=== PATIENT | male | born 1940 | race Caucasian/White ===

== ENCOUNTER 2016-09-03 07:40 | Inpatient (IN) | payer OTHER ==
[2016-09-03] MEDS ORDERED: DUONEB 0.5-3 MG/3 ml Neb IH ONE ×2 (07:54→08:04)
[2016-09-03] MEDS ORDERED: solu-MEDROL 125 MG IV ONE (08:04)
[2016-09-03 08:11] LABS: VBG BASE EXCESS 6.2 (-2.0-2.0); VBG HCO3- 32.3 meq/L (22-28); VBG HEMOGLOBIN 14.1; VBG O2 SATURATION 46.1 (95-100); VBG POTASSIUM 3.9 (3.5-5.1); VBG pH 7.41 (7.32-7.42)
[2016-09-03] MEDS ORDERED: solu-MEDROL 125 MG ONE (08:11)
--- NOTE | 2016-09-03 08:12 | ERPHSYRPT ---
- History of Present Illness Time Seen by Provider: 09/03/16 07:51 Source: patient Exam Limitations: no limitations Patient Subjective Stated Complaint: SOB/COUGH Triage Nursing Assessment: PT ALERT X3, RESP LABORED, DEEP, BREATHS. ANTERIOR INSPIRATION CLEAR, EXPIRATORY TIGHT WHEEZES, Physician History: This is a 76-year-old white male with history of chronic bronchitis, high blood pressure, cardiac pacemaker who has been noted to have chronic bronchitis in the past and states that he was diagnosed with pneumonia by [facility] yesterday and placed on a Zithromax Z-SACHA. He states he has been short of breath for 4 days he states this is becoming worse he arrives short of breath with persistent coughing he denies any chest pain does state that his cough has been persistent no fevers. Past medical history includes chronic bronchitis, high blood pressure, cardiac pacemaker Social history patient denies tobacco alcohol or illicit drug use Timing/Duration: day(s) (cough for 4 days worse today) Activities at Onset: none Severity of Dyspnea-Max: moderate Severity of Dyspnea-Current: moderate Possible Cause: occasional episodes Modifying Factors: Improves With: nothing, other (patient started Zithromax yesterday) Associated Symptoms: constant, cough, wheezing, productive cough, No anxiety, No chest pain/discomfort, No edema, No fever, No insomnia, No loss of appetite, No lightheadedness, No weakness, No ankle swelling, No chills, No hemoptysis, No calf pain, No dizziness, No heaviness, No heart racing, No lightheadedness, No leg swelling, No muscle spasms feet, No muscle spasms hands, No painful breathing, No sweating, No tightness, No tingling hands Allergies/Adverse Reactions: No Known Drug Allergies Allergy (Unverified 09/03/16 07:59) Home Medications: Aspirin [Aspir 81] 81 mg PO DAILY 09/04/12 [History] Hydrochlorothiazide 25 mg [hydroDIURIL 25 MG] 25 mg PO DAILY 09/04/12 [ History] Lisinopril [Zestril] 5 mg PO DAILY 09/04/12 [History] Metoprolol Tartrate 25 mg [Lopressor 25MG Tab] 25 mg PO BID 09/04/12 [ History] - Review of Systems Constitutional: No Fever, No Chills Eyes: No Symptoms Ears, Nose, & Throat: No Symptoms Respiratory: Cough, Dyspnea, Wheezing, No Cyanosis, No Dyspnea on Exertion (MCCARTY) , No Stridor, No Other Cardiac: No Chest Pain, No Edema, No Syncope Abdominal/Gastrointestinal: No Abdominal Pain, No Nausea, No Vomiting, No Diarrhea Genitourinary Symptoms: No Dysuria Musculoskeletal: No Back Pain, No Neck Pain Skin: No Rash Neurological: No Dizziness, No Focal Weakness, No Sensory Changes Psychological: No Symptoms Endocrine: No Symptoms All Other Systems: Reviewed and Negative - Past Medical History Pertinent Past Medical History: Yes Neurological History: No Pertinent History ENT History: No Pertinent History Cardiac History: Hypertension, Other Respiratory History: No Pertinent History Endocrine Medical History: No Pertinent History Musculoskeletal History: No Pertinent History History: No Pertinent History Psycho-Social History: No Pertinent History Male Reproductive Disorders: No Pertinent History Other Medical History: PPM - Past Surgical History Past Surgical History: Yes Neuro Surgical History: No Pertinent History Cardiac: Pacemaker Respiratory: No Pertinent History Gastrointestinal: No Pertinent History Genitourinary: No Pertinent History Musculoskeletal: No Pertinent History Male Surgical History: No Pertinent History - Social History Smoking Status: Never smoker Exposure to second hand smoke: No Drug Use: none Patient Lives Alone: No - Nursing Vital Signs Nursing Vital Signs: Initial Vital Signs Temperature 98.5 F Temperature Source Oral Pulse Rate 103 Respiratory Rate 20 Blood Pressure [] 134/69 Pain Intensity 0 - Physical Exam General Appearance: moderate distress, other (well-developed well-nourished white male persistent cough) Eye Exam: PERRL/EOMI Ears, Nose, Throat Exam: hearing grossly normal, normal ENT inspection, normal pharynx, No abnormal TM (R), No abnormal TM (L), No sinus pain/drainage, No hearing decreased, No nasal congestion, No tonsillar exudate Neck Exam: normal inspection, non-tender, supple Respiratory Exam: respiratory distress (frequent cough short of breath), airway intact, diminished breath sounds, wheezing, No chest tenderness, No lungs clear , No accessory muscle use, No prolonged expirations, No crackles/rales, No rhonchi, No stridor, No pleural rub Cardiovascular/Chest Exam: normal heart sounds, regular rate/rhythm Abdominal/Gastrointestinal Exam: soft, No tenderness, No distention, No mass Extremity Exam: non-tender, normal range of motion, normal inspection, no calf tenderness, no pedal edema Peripheral Pulses Exam: dorsalis-pedis (R): 2+, dorsalis-pedis (L): 2+ Neurologic Exam: alert Skin Exam: normal color (illnesses), warm, No dry SpO2 Interpretation: borderline oxygenation (87% on room air on arrival ) SpO2: 94 Oxygen Delivery: Nasal Cannula - Course Nursing assessment & vital signs reviewed: Yes EKG Interpreted by Me: RATE (105 bpm), Other (EKG; Paced rhythm 105 bpm) - Radiology Exams Chest X-ray Interpretation: Discussed w/ radiologist, Other (chest x-ray: Lingular infiltrate/atelectasis) Ordered Tests: Active Orders 24 hr Category Date Time Status Bedrest with BRP/BSC ROUTINE Activity 09/03/16 09:51 Active Accucheck ACHS Care 09/03/16 09:51 Active Admission/Status Order ROUTINE Care 09/03/16 09:52 Active CO2 Monitoring CONTINUOUS Care 09/03/16 09:53 Active Mercury Purifier STAT Care 09/03/16 08:04 Active Code Status Order ROUTINE Care 09/03/16 09:52 Active EKG-ER Only STAT Care 09/03/16 08:04 Active IV Care Q6H Care 09/03/16 09:52 Active IV Insertion STAT Care 09/03/16 08:04 Active Oxygen-ED Only NASAL CANNULA 4 lpm Care 09/03/16 08:04 Active Julito Hose, Apply ROUTINE Care 09/03/16 09:52 Active Weight,Daily 0600 Care 09/03/16 09:52 Active Cardiac Diet Diet 09/03/16 Lunch Active CHEST 1 VIEW (PORTABLE) Stat Exams 09/03/16 08:05 Completed BLOOD CULTURE Stat Lab 09/03/16 08:15 Received CBC AM.LAB Lab 09/04/16 04:00 Ordered CBC W DIFF Stat Lab 09/03/16 08:00 Completed CMP AM.LAB Lab 09/04/16 04:00 Ordered CMP Stat Lab 09/03/16 08:00 Completed CULTURE,SPUTUM Stat Lab 09/03/16 08:00 Received Manual Differential NC Stat Lab 09/03/16 08:00 Completed NT PRO BNP Stat Lab 09/03/16 08:15 Completed TROPONIN Stat Lab 09/03/16 08:15 Completed VENOUS BLOOD GAS Urgent Lab 09/03/16 08:05 Completed Oxygen NASAL CANNULA 5 lpm RT 09/03/16 09:51 Active Pulse Oximetry CONTINUOUS RT 09/03/16 09:54 Active Respiratory Nebulizer STAT RT 09/03/16 08:06 Completed Respiratory Nebulizer STAT RT 09/03/16 08:27 Completed Respiratory Nebulizer STAT RT 09/03/16 09:08 Completed Medication Summary Generic Name Dose Route Start Last Admin Trade Name Juan Luis PRN Reason Stop Dose Admin Albuterol Sulfate 2.5 mg 09/03/16 11:00 Proventil 2.5 Mg/3 Ml Neb IH 10/03/16 10:59 Q4HRT LUCIAN Ceftriaxone Sodium/Dextrose 50 mls @ 100 mls/hr 09/03/16 10:00 Rocephin 1 Gm-D5w 50 Ml Bag IV 10/03/16 09:59 Q24H10 LUCIAN Azithromycin 250 mls @ 125 mls/hr 09/03/16 10:00 Zithromax 500 Mg/ 250 Ml Nacl Premix IV 10/03/16 09:59 Q24H10 LUCIAN Sodium Chloride 1,000 mls @ 50 mls/hr 09/03/16 10:00 Sodium Chloride 0.9% 1000 Ml IV 10/03/16 09:59 .Q20H LUCIAN Methylprednisolone Sodium Succinate 80 mg 09/03/16 12:00 Solu-Medrol 125 Mg IV 10/03/16 11:59 Q6HT LUCIAN Discontinued Medications Generic Name Dose Route Start Last Admin Trade Name Juan Luis PRN Reason Stop Dose Admin Albuterol Sulfate 2.5 mg 09/03/16 08:27 09/03/16 08:30 Proventil 2.5 Mg/3 Ml Neb IH 09/03/16 08:28 2.5 mg STAT ONE Administration Albuterol Sulfate Confirm 09/03/16 08:28 Proventil 2.5 Mg/3 Ml Neb Administered 09/03/16 08:29 Dose 2.5 mg IH .STK-MED ONE Albuterol Sulfate 2.5 mg 09/03/16 09:07 09/03/16 09:20 Proventil 2.5 Mg/3 Ml Neb IH 09/03/16 09:08 2.5 mg STAT ONE Administration Albuterol Sulfate Confirm 09/03/16 09:20 Proventil 2.5 Mg/3 Ml Neb Administered 09/03/16 09:21 Dose 2.5 mg IH .STK-MED ONE Albuterol/Ipratropium Confirm 09/03/16 07:54 Duoneb 0.5-3 Mg/3 Ml Neb Administered 09/03/16 07:55 Dose 3 ml IH .STK-MED ONE Albuterol/Ipratropium 3 ml 09/03/16 08:04 09/03/16 08:00 Duoneb 0.5-3 Mg/3 Ml Neb IH 09/03/16 08:05 3 ml STAT ONE Administration Ceftriaxone Sodium/Dextrose 50 mls @ 100 mls/hr 09/03/16 08:52 09/03/16 08:55 Rocephin 1 Gm-D5w 50 Ml Bag IV 09/03/16 09:21 100 mls/hr STAT ONE Administration Ceftriaxone Sodium/Dextrose Confirm 09/03/16 08:54 Rocephin 1 Gm-D5w 50 Ml Bag Administered 09/03/16 08:55 Dose 50 mls @ ud IV .STK-MED ONE Methylprednisolone Sodium Succinate 125 mg 09/03/16 08:04 09/03/16 08:13 Solu-Medrol 125 Mg IV 09/03/16 08:05 125 mg STAT ONE Administration Methylprednisolone Sodium Succinate Confirm 09/03/16 08:11 Solu-Medrol 125 Mg Administered 09/03/16 08:12 Dose 125 mg .ROUTE .STK-MED ONE Lab/Rad Data: Laboratory Result Diagrams 09/03/16 08:00 09/03/16 08:00 Laboratory Results 09/03/16 09/03/16 09/03/16 Range/Units 08:15 08:15 08:15 WBC (4.0-10.5) K/mm3 RBC (4.1-5.6) M/mm3 Hgb (12.5-18.0) gm/dl Hct (42-50) % MCV (78-100) fl MCH (26-32) pg MCHC (32-36) g/dl RDW (11.5-14.0) % Plt Count (150-450) K/mm3 MPV (6-9.5) fl Segmented Neutrophils (36.-66.) % Band Neutrophils (0.0-2.0) % Lymphocytes (Manual) (24-44) % Monocytes (Manual) (0.0-12.0) % Eosinophils (Manual) (0.00-3.0) % Differential Comment Platelet Estimate (NORMAL) VBG pH (7.32-7.42) VBG pCO2 at Pat Temp (42-55) mm/Hg VBG pO2 at Pat Temp (25-40) mm/Hg VBG HCO3 (22-28) meq/L VBG O2 Sat (Mike) (95-100) VBG Base Excess (-2.0-2.0) VBG Hemoglobin VBG Carboxyhemoglobin (0.0-6.9) % T HGB POC Potassium (3.5-5.1) Sodium (136-145) mEq/L Potassium (3.5-5.1) mEq/L Chloride (98-107) mEq/L Carbon Dioxide (21-32) mEq/L Anion Gap (5-15) MEQ/L BUN (9-20) mg/dL Creatinine (0.55-1.30) mg/dl Estimated GFR ML/MIN Glucose (70-110) MG/DL Calcium (8.5-10.1) mg/dL Total Bilirubin (0.2-1.0) mg/dL AST (15-37) U/L ALT (12-78) U/L Alkaline Phosphatase (46-116) U/L Troponin I < 0.017 (0.000-0.056) ng/ml NT-Pro-B Natriuret Pep 100 (0-125) pg/ml Serum Total Protein (6.4-8.2) gm/dL Albumin (3.4-5.0) g/dL Resp Infection Panel NEGATIVE (Negative) 09/03/16 09/03/16 09/03/16 Range/Units 08:05 08:00 08:00 WBC 15.3 H (4.0-10.5) K/mm3 RBC 3.75 L (4.1-5.6) M/mm3 Hgb 13.1 (12.5-18.0) gm/dl Hct 36.5 L (42-50) % MCV 97.3 (78-100) fl MCH 34.9 H (26-32) pg MCHC 35.9 (32-36) g/dl RDW 14.4 H (11.5-14.0) % Plt Count 276 (150-450) K/mm3 MPV 10.2 H (6-9.5) fl Segmented Neutrophils 79 H (36.-66.) % Band Neutrophils 1 (0.0-2.0) % Lymphocytes (Manual) 16 L (24-44) % Monocytes (Manual) 3 (0.0-12.0) % Eosinophils (Manual) 1 (0.00-3.0) % Differential Comment NORMAL Platelet Estimate NORMAL (NORMAL) VBG pH 7.41 (7.32-7.42) VBG pCO2 at Pat Temp 51 (42-55) mm/Hg VBG pO2 at Pat Temp 26 (25-40) mm/Hg VBG HCO3 32.3 H* (22-28) meq/L VBG O2 Sat (Mike) 46.1 L (95-100) VBG Base Excess 6.2 H (-2.0-2.0) VBG Hemoglobin 14.1 VBG Carboxyhemoglobin 3.0 (0.0-6.9) % T HGB POC Potassium 3.9 (3.5-5.1) Sodium 140 (136-145) mEq/L Potassium 3.6 (3.5-5.1) mEq/L Chloride 98 (98-107) mEq/L Carbon Dioxide 30.2 (21-32) mEq/L Anion Gap 15.0 (5-15) MEQ/L BUN 23 H (9-20) mg/dL Creatinine 1.28 (0.55-1.30) mg/dl Estimated GFR 58 ML/MIN Glucose 165 H (70-110) MG/DL Calcium 8.6 (8.5-10.1) mg/dL Total Bilirubin 0.6 (0.2-1.0) mg/dL AST 24 (15-37) U/L ALT 30 (12-78) U/L Alkaline Phosphatase 58 (46-116) U/L Troponin I (0.000-0.056) ng/ml NT-Pro-B Natriuret Pep (0-125) pg/ml Serum Total Protein 7.4 (6.4-8.2) gm/dL Albumin 3.0 L (3.4-5.0) g/dL Resp Infection Panel (Negative) - Progress Progress: improved Air Movement: fair Progress Note: 09/03/16 09:10 Is a 76-year-old white male with history of chronic bronchitis who was diagnosed with pneumonia at the [facility] yesterday. He arrives with complaints of shortness of breath and cough. Patient does have a history of a cardiac pacemaker patient has a lingular pneumonia on chest x-ray. Patient's satting in the high 80s on 5 L of the nasal cannula he has bilateral wheezes in his lungs patient has a white count of 15 3 hemoglobin 13 hematocrit 36 patient's chemistry essentially normal with the exception of a glucose of 165 and a BUN of 23 patient's BNP is 100 troponin is less than 0.017 chest x- ray as noted above lingular infiltrate versus atelectasis. Patient has received DuoNeb treatment albuterol treatments Solu-Medrol , cultures have been obtained patient is receiving Rocephin. Patient is a [facility] patient [facility] has contacted there are no beds Will contact hospitalist for admission diagnosis pneumonia, bronchospasm. Will plan on continued IV antibiotics IV steroids oxygen administration and inhalation treatments. 09/03/16 09:56 Case is discussed with Dr. Cohn patient will be admitted. Will be continued with IV antibiotics steroids and breathing treatments oxygen. - Departure Time of Disposition: 09:56 Departure Disposition: In-patient Admission Clinical Impression: Bronchospasm, Shortness of breath, Hypoxia Pneumonia Qualifiers: Pneumonia type: due to unspecified organism Laterality: left Lung location: upper lobe of lung Qualified Code(s): J18.1 - Lobar pneumonia, unspecified organism Condition: Fair Critical Care Time: No
[2016-09-03] MEDS ORDERED: PROVENTIL 2.5 MG/3 ML NEB IH ONE ×4 (08:27→09:20)
[2016-09-03 08:29] LABS: Mean Cell Volume 97.3 fl (78-100); Mean Corpuscular Hemoglobin 34.9 pg (26-32); Mean Platelet Volume 10.2 fl (6-9.5); Platelet Count 276 K/mm3 (150-450); Red Blood Count 3.75 M/mm3 (4.1-5.6); Red Cell Distribution Width 14.4 % (11.5-14.0); White Blood Count 15.3 K/mm3 (4.0-10.5)
--- NOTE | 2016-09-03 08:42 | XRAY ---
Indication: Cough. Pneumonia. Comparison: September 04, 2012 Portable chest again hyperinflated with now lingular infiltrate versus atelectasis. No consolidation or large effusion. Heart is not enlarged. Vascularity normal. Stable left-sided dual-lead pacemaker. Bony thorax intact again with osteopenia and degenerative changes. Impression: Lingular infiltrate/atelectasis. Correlate clinically.
[2016-09-03 08:48] LABS: BILIRUBIN,TOTAL 0.6 mg/dL (0.2-1.0); Carbon Dioxide 30.2 mEq/L (21-32); Potassium 3.6 mEq/L (3.5-5.1); Total Protein 7.4 gm/dL (6.4-8.2)
[2016-09-03] MEDS ORDERED: ROCEPHIN 1 Gm-D5w 50 ml Bag** 50 ML IV ONE ×2 (08:52→08:54)
[2016-09-03 09:05] LABS: BAND 1 % (0.0-2.0); Eosinophil 1 % (0.00-3.0); Platelet Estimate NORMAL (NORMAL); Total Cells Counted 100
[2016-09-03] MEDS: ROCEPHIN 1 Gm-D5w 50 ml Bag** 50 ML IV SCH (10:25)
[2016-09-03] MEDS: PROVENTIL 2.5 MG/3 ML NEB IH SCH ×4 (11:17→23:39)
[2016-09-03] MEDS: Sodium Chloride 0.9% 1000 ML 1,000 ML IV SCH (11:19)
[2016-09-03] MEDS: Zithromax 500 MG/ 250 ML NaCl Premix 250 ML IV SCH (11:21)
[2016-09-03] MEDS ORDERED: solu-MEDROL 125 MG IV SCH (12:00)
[2016-09-03] MEDS: NovoLOG Insulin SQ PRN ×2 (16:43→22:16)
--- NOTE | 2016-09-03 17:22 | PCM.HP ---
History of Present Illness - Chief Complaint Chief Complaint: pneumonia History of Present Illness: is a 76 year old male patient who follows with the [facility] in [place]. He was reportedly diagnosed with pneumonia yesterday after a chest xray and started on a zpak, was told to come to ER if he got worse. He has had a productive cough worsening for the last 3 weeks, yellow sputum production. Feverish and having chills, he has no prior known history of respiratory problems, he is a nonsmoker. - Review of Systems Constitutional: Fever, Chills Respiratory: Cough, Short Of Breath Cardiac: No Chest Pain, No Edema, No Syncope Abdominal/Gastrointestinal: No Abdominal Pain, No Nausea, No Vomiting, No Diarrhea Skin: No Rash Neurological: No Dizziness, No Focal Weakness, No Sensory Changes All Other Systems: Reviewed and Negative Medications & Allergies Home Medications: Home Medication List Aspirin [Aspir 81] 81 mg PO DAILY 09/04/12 [History Confirmed 09/03/16] Hydrochlorothiazide 25 mg [hydroDIURIL 25 MG] 25 mg PO DAILY 09/04/12 [ History Confirmed 09/03/16] Lisinopril [Zestril] 5 mg PO DAILY 09/04/12 [History Confirmed 09/03/16] Metoprolol Tartrate 25 mg [Lopressor 25MG Tab] 25 mg PO DAILY 09/04/12 [ History Confirmed 09/03/16] Allergies/Adverse Reactions: Allergies Allergy/AdvReac Type Severity Reaction Status Date / Time No Known Drug Allergies Allergy Unverified 09/03/16 07:59 - Past Medical History Past Medical History: Yes Neurological History: No Pertinent History ENT History: No Pertinent History Cardiac History: Hypertension, Other Respiratory History: No Pertinent History Endocrine Medical History: No Pertinent History Musculoskelatal History: No Pertinent History GI Medical History: No Pertinent History History: No Pertinent History Pyscho-Social History: No Pertinent History Male Reproductive Disorders: No Pertinent History Comment: skin cancer - Past Surgical History Past Surgical History: Yes Neuro Surgical History: No Pertinent History Cardiac History: Pacemaker Respiratory Surgery: No Pertinent History GI Surgical History: No Pertinent History Genitourinary Surgical Hx: No Pertinent History Musculskeletal Surgical Hx: No Pertinent History Male Surgical History: No Pertinent History - Social History Smoking Status: Never smoker Exposure to second hand smoke: No Alcohol: None Drug Use: none - Physical Exam Vital Signs: Vital Signs - 24 hr Temp Pulse Resp BP Pulse Ox 09/03/16 16:13 98.2 F 99 H 20 152/80 95 09/03/16 14:35 104 H 20 93 L 09/03/16 11:28 99.1 F 100 H 24 155/71 09/03/16 11:19 110 H 20 92 L 09/03/16 10:43 99.1 F 100 H 24 155/71 90 L 09/03/16 09:58 94 L 09/03/16 09:54 92 L 09/03/16 09:40 105 H 24 136/62 84 L 09/03/16 09:22 103 H 20 92 L 09/03/16 08:50 108 H 17 134/69 90 L 09/03/16 08:41 101 H 20 91 L 09/03/16 08:22 103 H 21 142/79 91 L 09/03/16 08:12 107 H 22 93 L 09/03/16 07:49 23 94 L 09/03/16 07:40 98.5 F 114 H 26 H 147/59 84 L Oxygen-Last 24 hours O2 Percentage 5 Liters = 40% O2 Percentage 5 Liters = 40% O2 Percentage 5 Liters = 40% O2 Percentage 5 Liters = 40% O2 Percentage 5 Liters = 40% O2 Percentage 5 Liters = 40% O2 Percentage 4 Liters = 36% O2 Percentage 4 Liters = 36% General Appearance: no apparent distress, alert Respiratory Exam: crackles/rales (on left) Cardiovascular Exam: regular rate/rhythm, normal heart sounds, normal peripheral pulses Gastrointestinal/Abdomen Exam: soft, normal bowel sounds, No tenderness, No mass Extremity Exam: normal inspection, normal range of motion, pelvis stable Skin Exam: normal color, warm, dry, No rash Results - Labs Lab/Micro Results: Accuchecks Accucheck Value: 212 Accuchecks Accucheck Value: 212 - Other Procedures and Tests Respiratory Therapy 09/03/16 11:00 Respiratory Nebulizer Q4H Assessment/Plan (1) Pneumonia Current Visit: Yes Status: Acute Qualifiers: Pneumonia type: due to unspecified organism Laterality: left Lung location: upper lobe of lung Qualified Code(s): J18.1 - Lobar pneumonia, unspecified organism Assessment & Plan: patient on rocephin and zithromax, will continue nebs. I do not hear any wheezing on exam and no hx of copd/bronchospasm. will stop solu medrol ordered from ER Code(s): J18.9 - PNEUMONIA, UNSPECIFIED ORGANISM (2) Hyperglycemia Current Visit: Yes Status: Acute Assessment & Plan: exacerbated by steroids, will check a1c to further evaluate Code(s): R73.9 - HYPERGLYCEMIA, UNSPECIFIED
[2016-09-04] MEDS: PROVENTIL 2.5 MG/3 ML NEB IH SCH ×6 (03:10→22:56)
[2016-09-04 05:58] LABS: Mean Cell Volume 97.9 fl (78-100); Mean Corpuscular Hemoglobin 34.3 pg (26-32); Mean Platelet Volume 9.1 fl (6-9.5); Platelet Count 280 K/mm3 (150-450); Red Blood Count 3.38 M/mm3 (4.1-5.6); Red Cell Distribution Width 14.4 % (11.5-14.0)
[2016-09-04 06:21] LABS: ALBUMIN 2.4 g/dL (3.4-5.0); ANION GAP 13.6 MEQ/L (5-15); BILIRUBIN,TOTAL 0.2 mg/dL (0.2-1.0); Carbon Dioxide 29.6 mEq/L (21-32); Potassium 4.2 mEq/L (3.5-5.1); Total Protein 7.5 gm/dL (6.4-8.2)
[2016-09-04 07:11] LABS: Total Cells Counted 100
[2016-09-04 07:12] LABS: ANISOCYTOSIS 1+; Platelet Estimate NORMAL (NORMAL); Poikilocytosis 1+
--- NOTE | 2016-09-04 08:12 | PCM.NOTE ---
Date and Time: 09/04/16809 Subjective Assessment: patient reports some improvement of respiratory symptoms, still has significant cough, hard to breathe deeply Objective Exam General Appearance: no apparent distress, alert Respiratory Exam: crackles/rales Cardiovascular Exam: regular rate/rhythm, normal heart sounds Gastrointestinal/Abdomen Exam: soft, No tenderness, No mass Extremity Exam: normal inspection, normal range of motion OBJECTIVE DATA Vital Signs: Vital Signs - 24 hr Temp Pulse Resp BP Pulse Ox 09/04/16 07:31 97.8 F 93 H 22 124/57 94 L 09/04/16 06:37 82 20 94 L 09/04/16 04:00 97.0 F 83 20 132/62 91 L 09/04/16 03:10 74 22 91 L 09/04/16 00:00 98.2 F 95 H 21 132/60 90 L 09/03/16 23:39 94 H 16 90 L 09/03/16 20:00 98.1 F 104 H 22 113/55 91 L 09/03/16 19:43 101 H 16 90 L 09/03/16 16:13 98.2 F 99 H 20 152/80 95 09/03/16 14:35 104 H 20 93 L 09/03/16 11:28 99.1 F 100 H 24 155/71 09/03/16 11:19 110 H 20 92 L 09/03/16 10:43 99.1 F 100 H 24 155/71 90 L 09/03/16 09:58 94 L 09/03/16 09:54 92 L 09/03/16 09:40 105 H 24 136/62 84 L 09/03/16 09:22 103 H 20 92 L 09/03/16 08:50 108 H 17 134/69 90 L 09/03/16 08:41 101 H 20 91 L 09/03/16 08:22 103 H 21 142/79 91 L 09/03/16 08:12 107 H 22 93 L Oxygen-Last 24 hours O2 Percentage 6 Liters = 44% O2 Percentage 6 Liters = 44% O2 Percentage 5 Liters = 40% O2 Percentage 5 Liters = 40% O2 Percentage 5 Liters = 40% O2 Percentage 5 Liters = 40% O2 Percentage 5 Liters = 40% O2 Percentage 5 Liters = 40% O2 Percentage 5 Liters = 40% O2 Percentage 5 Liters = 40% Pain Assessment - Last Documented Pain Scale Used 0-10 Pain Scale Intake and Output: Intake & Output 09/01/16 09/02/16 09/03/16 09/04/16 11:59 11:59 11:59 11:59 Intake Total 1820 Balance 1820 Weight 94.914 kg 96.207 kg Lab Results: Accuchecks Accucheck Value: 361 Accucheck Value: 392 Accucheck Value: 212 Lab Results-Last 24 Hours 09/04/16 09/04/16 Range/Units 05:08 05:08 WBC 16.0 H (4.0-10.5) K/mm3 RBC 3.38 L (4.1-5.6) M/mm3 Hgb 11.6 L (12.5-18.0) gm/dl Hct 33.1 L (42-50) % MCV 97.9 (78-100) fl MCH 34.3 H (26-32) pg MCHC 35.0 (32-36) g/dl RDW 14.4 H (11.5-14.0) % Plt Count 280 (150-450) K/mm3 MPV 9.1 (6-9.5) fl Segmented Neutrophils 91 H (36.-66.) % Lymphocytes (Manual) 4 L (24-44) % Monocytes (Manual) 5 (0.0-12.0) % Differential Comment ABNORMAL Platelet Estimate NORMAL (NORMAL) Poikilocytosis 1+ Anisocytosis 1+ Sodium 140 (136-145) mEq/L Potassium 4.2 (3.5-5.1) mEq/L Chloride 101 (98-107) mEq/L Carbon Dioxide 29.6 (21-32) mEq/L Anion Gap 13.6 (5-15) MEQ/L BUN 29 H (9-20) mg/dL Creatinine 1.30 (0.55-1.30) mg/dl Estimated GFR 57 ML/MIN Glucose 331 H (70-110) MG/DL Calcium 8.7 (8.5-10.1) mg/dL Total Bilirubin 0.2 (0.2-1.0) mg/dL AST 24 (15-37) U/L ALT 30 (12-78) U/L Alkaline Phosphatase 53 (46-116) U/L Serum Total Protein 7.5 (6.4-8.2) gm/dL Albumin 2.4 L (3.4-5.0) g/dL Assessment/Plan (1) Pneumonia Current Visit: Yes Status: Acute Qualifiers: Pneumonia type: due to unspecified organism Laterality: left Lung location: upper lobe of lung Qualified Code(s): J18.1 - Lobar pneumonia, unspecified organism Assessment & Plan: continue current management Code(s): J18.9 - PNEUMONIA, UNSPECIFIED ORGANISM (2) Hyperglycemia Current Visit: Yes Status: Acute Assessment & Plan: a1c 6.8% so technically meets criteria for diabetes, continue to cover with sliding scale insulin at this time Code(s): R73.9 - HYPERGLYCEMIA, UNSPECIFIED
[2016-09-04] MEDS: Sodium Chloride 0.9% 1000 ML 1,000 ML IV SCH (08:14)
[2016-09-04] MEDS: hydroDIURIL 25 MG PO SCH (08:16)
[2016-09-04] MEDS: Lopressor 25MG Tab PO SCH (08:16)
[2016-09-04] MEDS: Zestril 5 MG PO SCH (08:16)
[2016-09-04] MEDS: ECOTRIN 81 MG PO SCH (08:16)
[2016-09-04] MEDS: ROCEPHIN 1 Gm-D5w 50 ml Bag** 50 ML IV SCH (08:17)
[2016-09-04] MEDS: NovoLOG Insulin SQ PRN ×4 (08:21→22:02)
[2016-09-04] MEDS: Zithromax 500 MG/ 250 ML NaCl Premix 250 ML IV SCH (10:33)
[2016-09-04] MEDS: DELTASONE 20 MG PO SCH ×2 (10:33→22:02)
[2016-09-04] MEDS: Tussionex Pennkinetic Susp PO PRN (22:02)
[2016-09-05] MEDS: PROVENTIL 2.5 MG/3 ML NEB IH SCH ×6 (02:34→22:51)
[2016-09-05] MEDS: Sodium Chloride 0.9% 1000 ML 1,000 ML IV SCH (05:05)
[2016-09-05 05:34] LABS: Mean Cell Volume 96.9 fl (78-100); Platelet Count 337 K/mm3 (150-450); Red Blood Count 3.81 M/mm3 (4.1-5.6); Red Cell Distribution Width 14.9 % (11.5-14.0); White Blood Count 17.9 K/mm3 (4.0-10.5)
[2016-09-05 06:07] LABS: ANION GAP 12.7 MEQ/L (5-15); Carbon Dioxide 29.9 mEq/L (21-32)
[2016-09-05 06:08] LABS: Mean Corpuscular Hemoglobin 30.1 pg (26-32)
[2016-09-05 07:16] LABS: BAND 3 % (0.0-2.0); Myelocyte 1 %; Platelet Estimate NORMAL (NORMAL); Total Cells Counted 100
--- NOTE | 2016-09-05 08:09 | PCM.NOTE ---
Date and Time: 09/05/16807 Subjective Assessment: patient is improving, had a bad coughing spell last night but overall is less dyspneic and has more energy. Objective Exam General Appearance: no apparent distress, alert Respiratory Exam: rhonchi Cardiovascular Exam: regular rate/rhythm, normal heart sounds Gastrointestinal/Abdomen Exam: soft, No tenderness, No mass Extremity Exam: normal inspection, normal range of motion OBJECTIVE DATA Vital Signs: Vital Signs - 24 hr Temp Pulse Resp BP Pulse Ox 09/05/16 08:00 97.8 F 83 20 118/58 93 L 09/05/16 06:00 73 18 93 L 09/05/16 04:00 98.5 F 66 19 138/65 91 L 09/05/16 02:34 79 14 94 L 09/05/16 00:00 98.4 F 95 H 21 117/57 89 L 09/04/16 22:56 103 H 16 91 L 09/04/16 20:00 98.3 F 83 16 111/52 88 L 09/04/16 19:00 91 H 16 92 L 09/04/16 16:31 97.8 F 78 20 111/56 96 09/04/16 16:00 20 09/04/16 14:53 84 20 95 09/04/16 12:00 20 09/04/16 11:46 98.2 F 85 20 106/55 93 L 09/04/16 10:41 84 20 94 L Oxygen-Last 24 hours O2 Percentage 2 Liters = 28% O2 Percentage 2 Liters = 28% O2 Percentage 2 Liters = 28% O2 Percentage 2 Liters = 28% O2 Percentage 6 Liters = 44% Pain Assessment - Last Documented Pain Scale Used 0-10 Pain Scale Intake and Output: Intake & Output 09/02/16 09/03/16 09/04/16 09/05/16 11:59 11:59 11:59 11:59 Intake Total 1820 2331 Balance 1820 2331 Weight 94.914 kg 96.207 kg Lab Results: Accuchecks Date 09/05/16 Date 09/05/16 Date 09/04/16 Date 09/04/16 Time 08:03 Time 22:00 Time 16:30 Time 11:30 Accucheck Value: 224 Accucheck Value: 294 Accucheck Value: 393 Accucheck Value: 255 Lab Results-Last 24 Hours 09/05/16 09/05/16 Range/Units 05:13 05:13 WBC 17.9 H (4.0-10.5) K/mm3 RBC 3.81 L (4.1-5.6) M/mm3 Hgb 11.5 L (12.5-18.0) gm/dl Hct 36.9 L (42-50) % MCV 96.9 (78-100) fl MCH 30.1 (26-32) pg MCHC 31.2 L (32-36) g/dl RDW 14.9 H (11.5-14.0) % Plt Count 337 (150-450) K/mm3 MPV 9.0 (6-9.5) fl Segmented Neutrophils 86 H (36.-66.) % Band Neutrophils 3 H (0.0-2.0) % Lymphocytes (Manual) 7 L (24-44) % Monocytes (Manual) 3 (0.0-12.0) % Myelocytes 1 % Differential Comment NORMAL Platelet Estimate NORMAL (NORMAL) Sodium 141 (136-145) mEq/L Potassium 5.0 (3.5-5.1) mEq/L Chloride 103 (98-107) mEq/L Carbon Dioxide 29.9 (21-32) mEq/L Anion Gap 12.7 (5-15) MEQ/L BUN 36 H (9-20) mg/dL Creatinine 1.34 H (0.55-1.30) mg/dl Estimated GFR 55 ML/MIN Glucose 270 H (70-110) MG/DL Calcium 8.7 (8.5-10.1) mg/dL Assessment/Plan (1) Pneumonia Current Visit: Yes Status: Acute Qualifiers: Pneumonia type: due to unspecified organism Laterality: left Lung location: upper lobe of lung Qualified Code(s): J18.1 - Lobar pneumonia, unspecified organism Assessment & Plan: on rocephin and zithromax, improving clinically Code(s): J18.9 - PNEUMONIA, UNSPECIFIED ORGANISM (2) Hyperglycemia Current Visit: Yes Status: Acute Assessment & Plan: will likely need to go home on metformin and will need diabetic education etc Code(s): R73.9 - HYPERGLYCEMIA, UNSPECIFIED
[2016-09-05] MEDS: NovoLOG Insulin SQ PRN ×4 (08:15→21:15)
[2016-09-05] MEDS: ECOTRIN 81 MG PO SCH (09:18)
[2016-09-05] MEDS: ROCEPHIN 1 Gm-D5w 50 ml Bag** 50 ML IV SCH (09:18)
[2016-09-05] MEDS: hydroDIURIL 25 MG PO SCH (09:19)
[2016-09-05] MEDS: Zestril 5 MG PO SCH (09:19)
[2016-09-05] MEDS: Lopressor 25MG Tab PO SCH (09:19)
[2016-09-05] MEDS: DELTASONE 20 MG PO SCH ×2 (09:19→21:09)
[2016-09-05] MEDS: Zithromax 500 MG/ 250 ML NaCl Premix 250 ML IV SCH (10:32)
[2016-09-06] MEDS: Sodium Chloride 0.9% 1000 ML 1,000 ML IV SCH (02:45)
[2016-09-06] MEDS: PROVENTIL 2.5 MG/3 ML NEB IH SCH ×6 (02:51→22:58)
[2016-09-06 06:01] LABS: Mean Cell Volume 94.9 fl (78-100); Platelet Count 341 K/mm3 (150-450); Red Blood Count 3.95 M/mm3 (4.1-5.6); Red Cell Distribution Width 14.8 % (11.5-14.0); White Blood Count 15.8 K/mm3 (4.0-10.5)
[2016-09-06 06:15] LABS: ALBUMIN 2.5 g/dL (3.4-5.0); ALKALINE PHOSPHATASE 48 U/L (46-116); ANION GAP 15.5 MEQ/L (5-15); BILIRUBIN,TOTAL 0.2 mg/dL (0.2-1.0); BLOOD UREA NITROGEN 23 mg/dL (9-20); CHLORIDE 103 mEq/L (98-107); Carbon Dioxide 27.3 mEq/L (21-32); Glucose 256 MG/DL (70-110); Potassium 5.5 mEq/L (3.5-5.1); SGOT/AST 23 U/L (15-37); SGPT/ALT 44 U/L (12-78); SODIUM 140 mEq/L (136-145); Total Protein 7.2 gm/dL (6.4-8.2)
[2016-09-06 06:27] LABS: Mean Corpuscular Hemoglobin 30.8 pg (26-32)
[2016-09-06] MEDS: NovoLOG Insulin SQ PRN ×3 (07:56→21:32)
[2016-09-06 08:11] LABS: Platelet Estimate NORMAL (NORMAL); Total Cells Counted 100
[2016-09-06 08:12] LABS: Toxic Granulation 1+
[2016-09-06] MEDS: ECOTRIN 81 MG PO SCH (08:42)
[2016-09-06] MEDS: Lopressor 25MG Tab PO SCH (08:42)
[2016-09-06] MEDS: hydroDIURIL 25 MG PO SCH (08:42)
[2016-09-06] MEDS: ROCEPHIN 1 Gm-D5w 50 ml Bag** 50 ML IV SCH (08:43)
[2016-09-06] MEDS: DELTASONE 20 MG PO SCH (08:43)
[2016-09-06] MEDS: Zestril 5 MG PO SCH (08:43)
[2016-09-06] MEDS: Zithromax 500 MG/ 250 ML NaCl Premix 250 ML IV SCH (10:28)
--- NOTE | 2016-09-06 11:27 | PCM.NOTE ---
Date and Time: 09/06/16 1122 Subjective Assessment: Pt was feeling better his first two days, now he sometimes feels better and worse through the day. Coughed all night. Has not been up moving around. Objective Exam General Appearance: no apparent distress Neurologic Exam: alert, oriented x 3, cooperative Skin Exam: normal color, warm, dry Respiratory Exam: diminished breath sounds, rhonchi (RLL), No wheezing Cardiovascular Exam: regular rate/rhythm, normal heart sounds Gastrointestinal/Abdomen Exam: soft, No tenderness Extremity Exam: No pedal edema, No swelling Back Exam: normal inspection OBJECTIVE DATA Vital Signs: Vital Signs - 24 hr Temp Pulse Resp BP Pulse Ox 09/06/16 10:00 59 L 18 93 L 09/06/16 08:00 17 09/06/16 07:21 97.8 F 69 17 127/58 90 L 09/06/16 06:00 79 18 94 L 09/06/16 04:00 98.2 F 60 17 132/62 94 L 09/06/16 02:51 60 17 94 L 09/06/16 00:00 98.0 F 74 16 126/62 93 L 09/05/16 22:51 74 16 93 L 09/05/16 20:00 98.4 F 95 H 17 126/59 92 L 09/05/16 18:34 89 16 92 L 09/05/16 16:00 98.5 F 87 20 133/60 91 L 09/05/16 14:00 74 18 91 L 09/05/16 12:00 98.6 F 78 18 122/58 97 Oxygen-Last 24 hours O2 Percentage 2 Liters = 28% O2 Percentage 2 Liters = 28% O2 Percentage 2 Liters = 28% O2 Percentage 2 Liters = 28% O2 Percentage 2 Liters = 28% Pain Assessment - Last Documented Pain Scale Used 0-10 Pain Scale Intake and Output: Intake & Output 09/03/16 09/04/16 09/05/16 09/06/16 11:59 11:59 11:59 11:59 Intake Total 1820 2331 3615 Balance 1820 2331 3615 Weight 94.914 kg 96.207 kg 95.572 kg Lab Results: Accuchecks Date 09/05/16 Date 09/05/16 Date 09/05/16 Time 16:27 Time 12:00 Accucheck Value: 201 Accucheck Value: 306 Accucheck Value: 340 Accucheck Value: 269 Lab Results-Last 24 Hours 09/06/16 09/06/16 Range/Units 05:48 05:48 WBC 15.8 H (4.0-10.5) K/mm3 RBC 3.95 L (4.1-5.6) M/mm3 Hgb 12.2 L (12.5-18.0) gm/dl Hct 37.5 L (42-50) % MCV 94.9 (78-100) fl MCH 30.8 (26-32) pg MCHC 32.5 (32-36) g/dl RDW 14.8 H (11.5-14.0) % Plt Count 341 (150-450) K/mm3 MPV 9.0 (6-9.5) fl Segmented Neutrophils 85 H (36.-66.) % Lymphocytes (Manual) 7 L (24-44) % Monocytes (Manual) 8 (0.0-12.0) % Differential Comment NORMAL Toxic Granulation 1+ Platelet Estimate NORMAL (NORMAL) Sodium 140 (136-145) mEq/L Potassium 5.5 H (3.5-5.1) mEq/L Chloride 103 (98-107) mEq/L Carbon Dioxide 27.3 (21-32) mEq/L Anion Gap 15.5 H (5-15) MEQ/L BUN 23 H (9-20) mg/dL Creatinine 1.08 (0.55-1.30) mg/dl Estimated GFR > 60 ML/MIN Glucose 256 H (70-110) MG/DL Calcium 9.0 (8.5-10.1) mg/dL Total Bilirubin 0.2 (0.2-1.0) mg/dL AST 23 (15-37) U/L ALT 44 (12-78) U/L Alkaline Phosphatase 48 (46-116) U/L Serum Total Protein 7.2 (6.4-8.2) gm/dL Albumin 2.5 L (3.4-5.0) g/dL Assessment/Plan (1) Pneumonia Current Visit: Yes Status: Acute Qualifiers: Pneumonia type: due to unspecified organism Laterality: left Lung location: upper lobe of lung Qualified Code(s): J18.1 - Lobar pneumonia, unspecified organism Assessment & Plan: His improvement has stalled. Culture signified Haemophilus influenza pneumonia which should be susceptible to rocephin. Restart IV steroid. May be able to d/ c tomorrow or the next day depending on his progress. Code(s): J18.9 - PNEUMONIA, UNSPECIFIED ORGANISM (2) Hyperglycemia Current Visit: Yes Status: Acute Assessment & Plan: Likely jeanie diabetes, f/u outpatient with DR. Cohn, will start on metformin po at discharge. Code(s): R73.9 - HYPERGLYCEMIA, UNSPECIFIED
[2016-09-06] MEDS: solu-MEDROL 40 MG IV SCH ×2 (14:43→21:30)
[2016-09-06] MEDS: Tussionex Pennkinetic Susp PO PRN (21:36)
[2016-09-07] MEDS: PROVENTIL 2.5 MG/3 ML NEB IH SCH ×6 (02:57→22:44)
[2016-09-07] MEDS: Sodium Chloride 0.9% 1000 ML 1,000 ML IV SCH ×2 (03:25→23:35)
[2016-09-07] MEDS: solu-MEDROL 40 MG IV SCH ×3 (05:26→22:35)
[2016-09-07 06:18] LABS: BASOPHIL % 0.1 % (0.0-0.4); Eosinophil % 0.1 % (0.00-5.0); Granulocytes % 89.5 % (36.0-66.0); Lymphocytes % 6.5 % (24.0-44.0); Mean Cell Volume 95.3 fl (78-100); Mean Corpuscular Hemoglobin 30.8 pg (26-32); Mean Platelet Volume 9.1 fl (6-9.5); Monocytes % 3.8 % (0.0-12.0); Platelet Count 387 K/mm3 (150-450); Red Blood Count 4.25 M/mm3 (4.1-5.6); Red Cell Distribution Width 14.5 % (11.5-14.0); White Blood Count 19.4 K/mm3 (4.0-10.5)
[2016-09-07 06:42] LABS: ANION GAP 15.9 MEQ/L (5-15); BLOOD UREA NITROGEN 23 mg/dL (9-20); CHLORIDE 101 mEq/L (98-107); Carbon Dioxide 27.6 mEq/L (21-32); Glucose 282 MG/DL (70-110); Potassium 5.3 mEq/L (3.5-5.1); SODIUM 139 mEq/L (136-145)
[2016-09-07 07:28] LABS: BAND 4 % (0.0-2.0); Platelet Estimate NORMAL (NORMAL); Total Cells Counted 100; Toxic Granulation 1+
[2016-09-07] MEDS: NovoLOG Insulin SQ PRN ×4 (08:19→22:35)
[2016-09-07] MEDS: ECOTRIN 81 MG PO SCH (09:28)
[2016-09-07] MEDS: hydroDIURIL 25 MG PO SCH (09:28)
[2016-09-07] MEDS: Zestril 5 MG PO SCH (09:28)
[2016-09-07] MEDS: Lopressor 25MG Tab PO SCH (09:28)
[2016-09-07] MEDS: ROCEPHIN 1 Gm-D5w 50 ml Bag** 50 ML IV SCH (09:29)
[2016-09-07] MEDS: Zithromax 500 MG/ 250 ML NaCl Premix 250 ML IV SCH (11:09)
--- NOTE | 2016-09-07 15:03 | PCM.NOTE ---
Date and Time: 09/07/16 1459 Subjective Assessment: Pt feels better than yesterday, breathing is better. Still on O2 1-2 L NC. notes he has been sleeping a lot today. He did get up and walk yesterday. Objective Exam General Appearance: no apparent distress Neurologic Exam: alert, oriented x 3, cooperative Skin Exam: normal color, warm, dry Respiratory Exam: rhonchi (LLL), other (good air exchange), No crackles/rales, No wheezing Cardiovascular Exam: regular rate/rhythm, normal heart sounds Extremity Exam: other (USAMA hose in place), No pedal edema, No swelling OBJECTIVE DATA Vital Signs: Vital Signs - 24 hr Temp Pulse Resp BP Pulse Ox 09/07/16 14:41 84 18 93 L 09/07/16 12:00 17 09/07/16 11:41 97.9 F 78 17 128/62 92 L 09/07/16 11:02 96 09/07/16 10:33 83 18 93 L 09/07/16 08:00 17 09/07/16 07:35 97.6 F 74 17 127/59 93 L 09/07/16 06:51 85 16 93 L 09/07/16 04:00 97.7 F 78 15 134/60 93 L 09/07/16 02:57 78 15 93 L 09/07/16 00:00 98.2 F 83 18 129/61 96 09/06/16 22:58 83 18 96 09/06/16 20:00 97.9 F 82 17 143/63 91 L 09/06/16 18:52 77 20 94 L 09/06/16 16:00 97.9 F 84 18 128/61 91 L 09/06/16 15:38 18 Oxygen-Last 24 hours O2 Percentage 2 Liters = 28% O2 Percentage 2 Liters = 28% O2 Percentage 2 Liters = 28% O2 Percentage 2 Liters = 28% O2 Percentage 2 Liters = 28% O2 Percentage 2 Liters = 28% Pain Assessment - Last Documented Pain Scale Used 0-10 Pain Scale Intake and Output: Intake & Output 09/05/16 09/06/16 09/07/16 09/08/16 11:59 11:59 11:59 11:59 Intake Total 4239 6996 9348 Balance 2331 8145 3082 Weight 95.572 kg 92.17 kg Lab Results: Accuchecks Date 09/06/16 Date 09/06/16 Time 16:30 Accucheck Value: 304 Accucheck Value: 250 Accucheck Value: 381 Accucheck Value: 311 Lab Results-Last 24 Hours 09/07/16 09/07/16 Range/Units 05:23 05:23 WBC 19.4 H (4.0-10.5) K/mm3 RBC 4.25 (4.1-5.6) M/mm3 Hgb 13.1 (12.5-18.0) gm/dl Hct 40.5 L (42-50) % MCV 95.3 (78-100) fl MCH 30.8 (26-32) pg MCHC 32.3 (32-36) g/dl RDW 14.5 H (11.5-14.0) % Plt Count 387 (150-450) K/mm3 MPV 9.1 (6-9.5) fl Gran % 89.5 H (36.0-66.0) % Lymphocytes % 6.5 L (24.0-44.0) % Monocytes % 3.8 (0.0-12.0) % Eosinophils % 0.1 (0.00-5.0) % Basophils % 0.1 (0.0-0.4) % Segmented Neutrophils 78 H (36.-66.) % Band Neutrophils 4 H (0.0-2.0) % Lymphocytes (Manual) 14 L (24-44) % Monocytes (Manual) 4 (0.0-12.0) % Basophils # 0.01 (0-0.4) Differential Comment NORMAL Toxic Granulation 1+ Platelet Estimate NORMAL (NORMAL) Sodium 139 (136-145) mEq/L Potassium 5.3 H (3.5-5.1) mEq/L Chloride 101 (98-107) mEq/L Carbon Dioxide 27.6 (21-32) mEq/L Anion Gap 15.9 H (5-15) MEQ/L BUN 23 H (9-20) mg/dL Creatinine 1.13 (0.55-1.30) mg/dl Estimated GFR > 60 ML/MIN Glucose 282 H (70-110) MG/DL Calcium 9.4 (8.5-10.1) mg/dL Magnesium 2.0 (1.8-2.4) mg/dL Assessment/Plan (1) Pneumonia Current Visit: Yes Status: Acute Qualifiers: Pneumonia type: due to unspecified organism Laterality: left Lung location: upper lobe of lung Qualified Code(s): J18.1 - Lobar pneumonia, unspecified organism Assessment & Plan: On IV rocephin and zithromax. Added in 40mg solumedrol IV q8h yesterday as patient did not seem to be improving over the previous 2 days. He is better, and I think may be able to d/c home tomorrow. Code(s): J18.9 - PNEUMONIA, UNSPECIFIED ORGANISM (2) Diabetes mellitus Current Visit: Yes Status: Chronic Qualifiers: Diabetes mellitus type: type 2 Diabetes mellitus complication status: without complication Diabetes mellitus oysterman insulin use: without senior living use Qualified Code(s): E11.9 - Type 2 diabetes mellitus without complications Assessment & Plan: Pt states he's been borderline for years. Will give a dose of lantus here, BS have been in the 300s. May need sliding scale at home. Diabetes education tomorrow before discharge. Code(s): E11.9 - TYPE 2 DIABETES MELLITUS WITHOUT COMPLICATIONS (3) Hyperkalemia Current Visit: Yes Status: Acute Assessment & Plan: has been mild; recheck in a.m. Code(s): E87.5 - HYPERKALEMIA
[2016-09-07] MEDS ORDERED: Lantus Insulin SQ SCH (22:00)
[2016-09-08] MEDS: PROVENTIL 2.5 MG/3 ML NEB IH SCH ×2 (02:42→06:48)
[2016-09-08 05:50] LABS: ANION GAP 16.2 MEQ/L (5-15); BLOOD UREA NITROGEN 25 mg/dL (9-20); CHLORIDE 101 mEq/L (98-107); Carbon Dioxide 26.2 mEq/L (21-32); Glucose 268 MG/DL (70-110); Mean Cell Volume 93.9 fl (78-100); Mean Corpuscular Hemoglobin 30.1 pg (26-32); Mean Platelet Volume 8.8 fl (6-9.5); Platelet Count 390 K/mm3 (150-450); Red Blood Count 4.25 M/mm3 (4.1-5.6); Red Cell Distribution Width 14.8 % (11.5-14.0); SODIUM 138 mEq/L (136-145); White Blood Count 22.8 K/mm3 (4.0-10.5)
[2016-09-08] MEDS: solu-MEDROL 40 MG IV SCH (05:51)
[2016-09-08 07:16] LABS: ATYPICAL LYMPHS 2 %; BAND 2 % (0.0-2.0); Total Cells Counted 100
[2016-09-08 07:18] VITALS: BP 143/67; PULSE 84
[2016-09-08 07:21] LABS: Platelet Estimate NORMAL (NORMAL); Toxic Granulation 2+
--- NOTE | 2016-09-08 07:36 | PCM.DS ---
Discharge Summary Date of Admission: 09/03/16 10:36 Admitting Physician: PEGGY HERNANDEZ Primary Care Provider: [facility] Allergies Allergies No Known Drug Allergies Allergy (Unverified 09/03/16 07:59) Hospital Summary - Hospital Course Hospital Course: patient was admitted with pneumonia, apparent copd exacerbation. has done well, sputum culture grew h flu. he is afebrile, off of oxygen and feels much better. sugars have been high secondary to steroid effect but diagnosed with diabetes during hospital stay. - Vitals & Intake/Output Vital Signs: Vital Signs Temperature 97.7 F 09/08/16 07:18 Pulse Rate 84 09/08/16 07:18 Respiratory Rate 18 09/08/16 07:18 Blood Pressure 143/67 09/08/16 07:18 O2 Sat by Pulse Oximetry 95 09/08/16 07:18 Oxygen-Last Documented O2 Percentage 1 Liter = 24% Intake & Output: Intake & Output 09/05/16 09/06/16 09/07/16 09/08/16 11:59 11:59 11:59 11:59 Intake Total 2331 3615 2246 2136 Balance 2331 3615 2246 2136 Weight 95.572 kg 92.17 kg - Lab Result Diagrams: 09/08/16 05:00 09/08/16 05:00 Lab Results-Last 24 Hrs: Accuchecks Date 09/07/16 Time 22:00 Accucheck Value: 319 Accucheck Value: 313 Accucheck Value: 304 Lab Results-Last 24 Hours 09/08/16 09/08/16 Range/Units 05:00 05:00 WBC 22.8 H (4.0-10.5) K/mm3 RBC 4.25 (4.1-5.6) M/mm3 Hgb 12.8 (12.5-18.0) gm/dl Hct 39.9 L (42-50) % MCV 93.9 (78-100) fl MCH 30.1 (26-32) pg MCHC 32.1 (32-36) g/dl RDW 14.8 H (11.5-14.0) % Plt Count 390 (150-450) K/mm3 MPV 8.8 (6-9.5) fl Segmented Neutrophils 91 H (36.-66.) % Band Neutrophils 2 (0.0-2.0) % Lymphocytes (Manual) 2 L (24-44) % Monocytes (Manual) 3 (0.0-12.0) % Atypical Lymphocytes 2 % Toxic Granulation 2+ Platelet Estimate NORMAL (NORMAL) Sodium 138 (136-145) mEq/L Potassium 5.0 (3.5-5.1) mEq/L Chloride 101 (98-107) mEq/L Carbon Dioxide 26.2 (21-32) mEq/L Anion Gap 16.2 H (5-15) MEQ/L BUN 25 H (9-20) mg/dL Creatinine 1.15 (0.55-1.30) mg/dl Estimated GFR > 60 ML/MIN Glucose 268 H (70-110) MG/DL Calcium 9.1 (8.5-10.1) mg/dL Micro Results-Entire Visit: Accuchecks Date 09/07/16 Time 22:00 Accucheck Value: 319 Accucheck Value: 313 Accucheck Value: 304 - Procedures and Test Procedures and Tests throughout Hospitalization: Therapy Orders & Screens 09/03/16 11:00 Respiratory Nebulizer Q4H Comment: ALBUTEROL Q4 Diagnosis: Shortness of Breath Discharge Exam General Appearance: no apparent distress, alert Respiratory Exam: normal breath sounds, lungs clear, No respiratory distress Cardiovascular Exam: regular rate/rhythm, normal heart sounds Gastrointestinal/Abdomen Exam: soft, No tenderness, No mass Extremity Exam: normal inspection, normal range of motion Final Diagnosis/Problem List - Final Discharge Diagnosis/Problem (1) Pneumonia Current Visit: Yes Status: Acute Assessment & Plan: home on po augmentin, prednisone taper. has nebulizer and solution at home (2) Diabetes mellitus Current Visit: Yes Status: Chronic Assessment & Plan: a1c on arrival 6.8% so meets criteria for diabetes, patient received education. will d/c home on metformin - Discharge Disposition: Home, Self-Care Condition: Good Prescriptions: New Amoxicillin/Potassium Clav [Augmentin 500-125 Tablet] 1 each PO TID #21 tablet Prednisone 20 mg [Deltasone 20 mg] 20 mg PO UD #18 tablet Metformin HCl 1 tab PO BID #60 tablet Continue Hydrochlorothiazide 25 mg [hydroDIURIL 25 MG] 25 mg PO DAILY Aspirin [Aspir 81] 81 mg PO DAILY Metoprolol Tartrate 25 mg [Lopressor 25MG Tab] 25 mg PO DAILY Lisinopril [Zestril] 5 mg PO DAILY Follow up with: [facility] [Primary Care Provider] - Forms: Patient Portal Information
[2016-09-08] MEDS: NovoLOG Insulin SQ PRN (07:58)
[2016-09-08] MEDS: ECOTRIN 81 MG PO SCH (08:17)
[2016-09-08] MEDS: hydroDIURIL 25 MG PO SCH (08:18)
[2016-09-08] MEDS: Zestril 5 MG PO SCH (08:18)
[2016-09-08] MEDS: Lopressor 25MG Tab PO SCH (08:18)
[2016-09-08 09:22] VITALS: O2SAT 94
== END 2016-09-08 09:20 | disposition home or self-care (01) | DRG 195 ==
LOC: ED 07:40 → MED SURG 10:36
PROVIDERS: ADMIT Family Medicine; ATTEND Family Medicine
DX: J18.9 Pneumonia, unspecified organism (principal); E11.65 Type 2 diabetes mellitus with hyperglycemia; I10 Essential (primary) hypertension; E87.5 Hyperkalemia; Z85.828 Personal history of other malignant neoplasm of skin; Z95.0 Presence of cardiac pacemaker
CPT/HCPCS: 36000; 36415; 71010; 80048; 80053; 82805; 82962; 83036; 83735; 83880; 84484; 85025; 87040; 87070; 87077; 87631; 93005; 93041; 94640; 94760; 94761; 96365; 96374; 99285; A9270; J0456; J0696; J2920; J2930

== ENCOUNTER 2019-09-06 18:23 | Emergency (ER) | payer OTHER ==
--- NOTE | 2019-09-06 18:39 | ERPHSYRPT ---
- History of Present Illness Time Seen by Provider: 09/06/19 18:39 Source: patient Exam Limitations: no limitations Physician History: The patient is a 79-year-old male with a past history significant for hypertension and reported COPD or bronchiectasis presents with a chief complaint of a cough. His cough started 3 weeks ago and has been persistent since that time. He is now coughing green/yellow-tinged sputum over the past week and states that he has a copious amount sputum production. He denies hemoptysis, shortness of breath but endorses having a subjective fever and chills. He also does have a some sinus congestion with some postnasal drip. Of note, the patient receives his medical care at the [facility] and reportedly was evaluated during the first week of his symptoms. He was not prescribe antibiotics at that time but treated symptomatically for what sounds like a viral upper respiratory tract infection given that his reportedly had similar symptoms prior to the onset of his. The report we was prescribed an albuterol inhaler but it sounds like he has not provided a spacer with this medication and has been using it every 4 hours with no relief. He is also prescribed Tessalon Perles which he sees with no relief of his cough. He denies chest pain, abdominal pain, vomiting, nausea, diarrhea admission to constipation. Allergies/Adverse Reactions: No Known Drug Allergies Allergy (Verified 09/06/19 18:41) Home Medications: Aspirin [Aspir 81] 81 mg PO DAILY 09/04/12 [History] Hydrochlorothiazide 25 mg [hydroDIURIL 25 MG] 25 mg PO DAILY 09/04/12 [ History] Metoprolol Tartrate 25 mg [Lopressor 25MG Tab] 25 mg PO DAILY 09/04/12 [ History] lisinopriL [Zestril] 5 mg PO DAILY 09/04/12 [History] - Review of Systems Constitutional: Fever, Chills Ears, Nose, & Throat: Nose Congestion Respiratory: Cough, No Dyspnea, No Dyspnea on Exertion (MCCARTY) Cardiac: No Chest Pain, No Edema Abdominal/Gastrointestinal: No Abdominal Pain, No Nausea, No Vomiting Genitourinary Symptoms: No Dysuria Skin: No Symptoms Neurological: No Symptoms Psychological: No Symptoms Immunological/Allergic: No Symptoms All Other Systems: Reviewed and Negative - Past Medical History Pertinent Past Medical History: Yes Neurological History: No Pertinent History ENT History: No Pertinent History Cardiac History: Hypertension, Other Respiratory History: No Pertinent History Endocrine Medical History: No Pertinent History Musculoskeletal History: No Pertinent History GI Medical History: No Pertinent History History: No Pertinent History Psycho-Social History: No Pertinent History Male Reproductive Disorders: No Pertinent History Other Medical History: skin cancer - Past Surgical History Past Surgical History: Yes Neuro Surgical History: No Pertinent History Cardiac: Pacemaker Respiratory: No Pertinent History Gastrointestinal: No Pertinent History Genitourinary: No Pertinent History Musculoskeletal: No Pertinent History Male Surgical History: No Pertinent History - Social History Smoking Status: Never smoker Exposure to second hand smoke: No Drug Use: none Patient Lives Alone: No - Nursing Vital Signs Nursing Vital Signs: Initial Vital Signs Temperature 98.5 F 09/06/19 18:25 Pulse Rate 100 H 09/06/19 18:25 Respiratory Rate 18 09/06/19 18:25 Blood Pressure 164/73 09/06/19 18:25 O2 Sat by Pulse Oximetry 92 L 09/06/19 18:25 Pain Scale Pain Intensity 0 - Physical Exam General Appearance: no apparent distress, alert Eye Exam: PERRL/EOMI, EOM palsy/anisocoria, No scleral icterus Ears, Nose, Throat Exam: normal ENT inspection, pharynx normal, moist mucous membranes, No TM abnormal (R), No TM abnormal (L), No pharyngeal erythema, No tonsillar exudate Neck Exam: normal inspection, non-tender, supple, No meningismus Respiratory Exam: diminished breath sounds, rhonchi (Rhonchi auscultated in the left lower lobe), wheezing, No chest tenderness, No respiratory distress Cardiovascular Exam: regular rate/rhythm, normal heart sounds, other (Pacemaker noted to the left upper chest wall), No murmur, No friction rub, No gallop, No edema Gastrointestinal/Abdomen Exam: soft, No tenderness, No distention, No mass Rectal Exam: deferred Back Exam: normal inspection Extremity Exam: normal inspection, other (No asymmetric lower extremity edema, calft tenderness, or erythema to suggest DVT), No pedal edema, No swelling, No tenderness Neurologic Exam: alert, oriented x 3, cooperative, normal mood/affect Skin Exam: normal color, warm, dry, No rash, No petechiae SpO2 Interpretation: normal O2 Delivery: Room Air - Course Nursing assessment & vital signs reviewed: Yes - Radiology Exams Chest X-ray Interpretation: Interpreted by me, Pneumonia (Appears to be an opacity in the lingula. ) Ordered Tests: Active Orders 24 hr Category Date Time Status CHEST 2 VIEWS (PA AND LAT) Stat Exams 09/06/19 18:55 Taken Peak Expiratory Flow Rate ONCE RT 09/06/19 19:43 Active Respiratory Therapy Assessment DAILY RT 09/06/19 19:43 Active Medication Summary Discontinued Medications Generic Name Dose Route Start Last Admin Trade Name Juan Luis PRN Reason Stop Dose Admin Albuterol Sulfate 2.5 mg 09/06/19 18:56 09/06/19 19:16 Proventil 2.5 Mg/3 Ml Neb IH 09/06/19 18:57 2.5 mg STAT ONE Administration Albuterol Sulfate Confirm 09/06/19 19:13 Proventil 2.5 Mg/3 Ml Neb Administered 09/06/19 19:14 Dose 2.5 mg IH .STK-MED ONE - Progress Progress: unchanged Progress Note: 09/06/19 22:38 nontoxic in appearance. Afebrile and well-hydrated. The patient has no chest pain and my suspicion for a cyst equivalent as well at this time. Chest x-ray two-view showed an opacity in the lingula suggestive of pneumonia. I did review a prior chest x-ray and it appears he may have had a similar opacity int he lingula and his the clinical context I decided to treat as if he has a community acquired pneumonia at this time although admittedly this may be viral in etiology. Given his comorbidities treatment consisting of amoxicillin azithromycin will be initiated. laboratory workup was her urine is benign is by and check currently. Prescriptions were printed and he was instructed to fill his medications this evening. He stated he would go to the [facility] in [place] to get these filled and start his medications this evening. I recommend that he followup with his provider at the [facility] for further evaluation and management. He was also instructed to return if his symptoms are worse. He agreed with verbally understood the discharge plan. 09/06/19 22:40 Counseled pt/family regarding: diagnosis, need for follow-up, rad results - Departure Departure Disposition: Home, In-patient Admission Clinical Impression: Community acquired bacterial pneumonia Condition: Good Critical Care Time: No Referrals: [facility] [Primary Care Provider] - Instructions: Pneumonia, Adult (DC) Prescriptions: Albuterol 8 gm Mdi Hfa [Ventolin Hfa MDI] 90 mcg IH Q4H PRN #1 [id number] PRN Reason: Shortness Of Breath Amoxicillin/Potassium Clav [Augmentin 875-125 Tablet] 1 each PO BID 7 Days #14 tablet Azithromycin 250 mg [Zithromax 250 MG TABLET] 250 mg PO ZPACK #6 tablet Sodium Chloride [Saline Nasal [place]] 30 ml NS BID PRN #1 spray
[2019-09-06] MEDS ORDERED: PROVENTIL 2.5 MG/3 ML NEB IH ONE ×2 (18:56→19:13)
[2019-09-06 19:51] VITALS: BP 162/69; PULSE 103; O2SAT 94
--- NOTE | 2019-09-07 08:44 | XRAY ---
Indication: Productive cough 3 weeks. Comparison: September 03, 2016. PA/lateral chest again demonstrates minimal lingula infiltrate/atelectasis. Remaining heart and lungs unremarkable with stable left pacemaker. Bony thorax intact again with osteopenia and degenerative changes.
== END 2019-09-06 19:51 | disposition home or self-care (01) ==
LOC: ED 18:23
DX: J15.9 Unspecified bacterial pneumonia (principal)
CPT/HCPCS: 71046; 94150; 94640; 99283; J7609; A9270-GY

== ENCOUNTER 2021-04-13 13:46 | Emergency (ER) | payer OTHER ==
--- NOTE | 2021-04-13 13:49 | ERPHSYRPT ---
- History of Present Illness Time Seen by Provider: 04/13/21 13:49 Source: patient, family Exam Limitations: no limitations Physician History: This is a 80-year-old diabetic white male with a history of hypertension and who is a patient of the [facility] system and presents to the emergency department with tenderness and redness and open sore of the left heel. Patient first noticed this evening after mowing his yard with his tractor. Patient was wearing crocs and short socks. He has not had fevers or chills. He notes a little area bleeding, tenderness and redness to the left heel area. Since then, he rates the pain a 4 out of 10 in he states his pain is controlled with Tylenol. He does not want anything stronger than that. Method of Injury: other (rubbing) Occurred: days ago (2) Quality: other (Mild burning) Severity of Pain-Max: mild Severity of Pain-Current: mild Lower Extremities Pain: heel: left Modifying Factors: Improves With: nothing Associated Symptoms: none Allergies/Adverse Reactions: influenza virus vaccine tvs (65 years up) [From Fluad (65 yr up)(PF)] Allergy (Verified 04/13/21 14:04) vaccine adjuvant emulsion MF59C.1 [From Fluad (65 yr up)(PF)] Allergy (Verified 04/13/21 14:04) Home Medications: Hydrochlorothiazide 25 mg [hydroDIURIL 25 MG] 25 mg PO DAILY 09/04/12 [History] Metoprolol Tartrate 25 mg [Lopressor 25MG Tab] 25 mg PO DAILY 09/04/12 [History] lisinopriL [Zestril] 5 mg PO DAILY 09/04/12 [History] Metformin HCl 2 tab PO BID 04/13/21 [History] Travel Risk - International Travel Have you traveled outside of the country in past 3 weeks: No - Coronavirus Screening Are you exhibiting any of the following symptoms?: No Close contact with a COVID-19 positive Pt in past 14-21 Days: No - Review of Systems Constitutional: No Symptoms Eyes: No Symptoms Ears, Nose, & Throat: No Symptoms Respiratory: No Symptoms Cardiac: No Symptoms Abdominal/Gastrointestinal: No Symptoms Genitourinary Symptoms: No Symptoms Musculoskeletal: No Symptoms Skin: Cellulitis (Mild localized left heel), Other Neurological: No Symptoms Psychological: No Symptoms Endocrine: No Symptoms Hematologic/Lymphatic: No Symptoms Immunological/Allergic: No Symptoms All Other Systems: Reviewed and Negative - Past Medical History Pertinent Past Medical History: Yes Neurological History: No Pertinent History ENT History: No Pertinent History Cardiac History: Hypertension, Other Respiratory History: No Pertinent History Endocrine Medical History: No Pertinent History Musculoskeletal History: No Pertinent History GI Medical History: No Pertinent History History: No Pertinent History Psycho-Social History: No Pertinent History Male Reproductive Disorders: No Pertinent History Other Medical History: skin cancer - Past Surgical History Past Surgical History: Yes Neuro Surgical History: No Pertinent History Cardiac: Pacemaker Respiratory: No Pertinent History Gastrointestinal: No Pertinent History Genitourinary: No Pertinent History Musculoskeletal: No Pertinent History Male Surgical History: No Pertinent History - Social History Smoking Status: Never smoker Exposure to second hand smoke: No Drug Use: none Patient Lives Alone: No - Nursing Vital Signs Nursing Vital Signs: Initial Vital Signs Temperature 97.3 F 04/13/21 13:55 Pulse Rate 59 L 04/13/21 13:55 Blood Pressure 151/65 04/13/21 13:55 O2 Sat by Pulse Oximetry 97 04/13/21 13:55 Pain Scale Pain Intensity 4 - Physical Exam General Appearance: no apparent distress, alert Eyes, Ears, Nose, Throat Exam: normal ENT inspection, moist mucous membranes Neck Exam: normal inspection, non-tender, supple, full range of motion Cardiovascular/Respiratory Exam: chest non-tender, no respiratory distress Gastrointestinal/Abdominal Exam: non-tender Back Exam: normal inspection, normal range of motion, No CVA tenderness, No vertebral tenderness Hips Exam: bilateral: non-tender, normal inspection, normal range of motion, no evidence of injury Legs Exam: bilateral leg: non-tender, normal inspection, normal range of motion, no evidence of injury Knees Exam: bilateral knee: non-tender, normal inspection, normal range of motion, no evidence of injury Ankle Exam: bilateral ankle: non-tender, normal inspection, normal range of motion, no evidence of injury Foot Exam: right foot: non-tender, normal inspection, no evidence of injury, left foot: normal range of motion, soft tissue tenderness, swelling (With associated redness and a central ulceration present. No drainage no odor are present) Neuro/Tendon Exam: normal sensation, normal motor functions, normal tendon functions, responds to pain, no evidence tendon injury Mental Status Exam: alert, oriented x 3, cooperative Skin Exam: other (See above) SpO2 Interpretation: normal O2 Delivery: Room Air - Course Nursing assessment & vital signs reviewed: Yes Ordered Tests: Medication Summary Discontinued Medications Generic Name Dose Route Start Last Admin Trade Name Juan Luis PRN Reason Stop Dose Admin Ceftriaxone Sodium 1,000 mg 04/13/21 14:37 Rocephin 1000 Mg Inj IM 04/13/21 14:38 STAT ONE Trimethoprim/Sulfamethoxazole 1 tab 04/13/21 14:37 Bactrim Ds Tablet PO 04/13/21 14:38 STAT ONE - Progress Progress: unchanged Counseled pt/family regarding: diagnosis, need for follow-up, rad results - Departure Departure Disposition: Home Clinical Impression: Cellulitis of left heel Condition: Stable Critical Care Time: No Referrals: [facility] [Primary Care Provider] - Additional Instructions: Keep site clean daily with soap and water. Do not use lotions ointments or creams. Keep the left leg elevated above the level of your heart when not ambulating. Cover the ulceration site with a Band-Aid. Return to the emergency room tomorrow in 24 hours for reassessment. Take your antibiotics medication and other medication as prescribed. Prescriptions: Smz/Tmp Ds Tablet [Bactrim Ds Tablet] 1 udtab PO BID #14 tablet
[2021-04-13 14:04] VITALS: O2SAT 97
[2021-04-13] MEDS ORDERED: Rocephin 1000 MG INJ IM ONE (14:37)
[2021-04-13] MEDS ORDERED: BACTRIM DS TABLET PO ONE ×2 (14:37→14:44)
[2021-04-13] MEDS ORDERED: Rocephin 1000 MG INJ ONE (14:45)
[2021-04-13] MEDS ORDERED: XYLOCAINE 1% HCL 20 ML MDV ONE (14:45)
[2021-04-13 14:56] VITALS: BP 142/75; PULSE 64
== END 2021-04-13 15:02 | disposition home or self-care (01) ==
LOC: ED 13:46
DX: L03.116 Cellulitis of left lower limb (principal)
CPT/HCPCS: 96372; 99283; J0696; A9270-GY

== ENCOUNTER 2021-04-14 15:16 | Emergency (ER) | payer OTHER ==
--- NOTE | 2021-04-14 15:19 | ERPHSYRPT ---
- History of Present Illness Time Seen by Provider: 04/14/21 15:18 Source: patient Exam Limitations: no limitations Physician History: This is a 80-year-old diabetic gentleman who was told to come back to the emergency room by me in 24 hours from his visit yesterday. I wanted to recheck his left heel cellulitis. He states that he thinks it is getting better and the pain is controlled with Tylenol. Quality: aching Lower Extremities Pain: heel: left Modifying Factors: Improves With: movement Associated Symptoms: none Allergies/Adverse Reactions: influenza virus vaccine tvs (65 years up) [From Fluad (65 yr up)(PF)] Allergy (Verified 04/14/21 15:32) vaccine adjuvant emulsion MF59C.1 [From Fluad (65 yr up)(PF)] Allergy (Verified 04/14/21 15:32) Home Medications: Hydrochlorothiazide 25 mg [hydroDIURIL 25 MG] 25 mg PO DAILY 09/04/12 [History] Metoprolol Tartrate 25 mg [Lopressor 25MG Tab] 25 mg PO DAILY 09/04/12 [History] lisinopriL [Zestril] 5 mg PO DAILY 09/04/12 [History] Metformin HCl 2 tab PO BID 04/13/21 [History] Hx Tetanus, Diphtheria Vaccination/Date Given: No Travel Risk - International Travel Have you traveled outside of the country in past 3 weeks: No - Coronavirus Screening Are you exhibiting any of the following symptoms?: No Close contact with a COVID-19 positive Pt in past 14-21 Days: No - Vaccine Status Have you recieved a Covid-19 vaccination: No - Review of Systems Constitutional: No Symptoms Eyes: No Symptoms Ears, Nose, & Throat: No Symptoms Respiratory: No Symptoms Cardiac: No Symptoms Abdominal/Gastrointestinal: No Symptoms Genitourinary Symptoms: No Symptoms Musculoskeletal: No Symptoms Skin: Cellulitis (Improved) Neurological: No Symptoms Psychological: No Symptoms Endocrine: No Symptoms Hematologic/Lymphatic: No Symptoms Immunological/Allergic: No Symptoms All Other Systems: Reviewed and Negative - Past Medical History Pertinent Past Medical History: Yes Neurological History: No Pertinent History ENT History: No Pertinent History Cardiac History: Hypertension, Other Respiratory History: No Pertinent History Endocrine Medical History: No Pertinent History Musculoskeletal History: No Pertinent History GI Medical History: No Pertinent History History: No Pertinent History Psycho-Social History: No Pertinent History Male Reproductive Disorders: No Pertinent History Other Medical History: skin cancer - Past Surgical History Past Surgical History: Yes Neuro Surgical History: No Pertinent History Cardiac: Pacemaker Respiratory: No Pertinent History Gastrointestinal: No Pertinent History Genitourinary: No Pertinent History Musculoskeletal: No Pertinent History Male Surgical History: No Pertinent History - Social History Smoking Status: Never smoker Exposure to second hand smoke: No Drug Use: none Patient Lives Alone: No - Nursing Vital Signs Nursing Vital Signs: Pain Scale Pain Intensity 0 - Physical Exam General Appearance: no apparent distress, alert Eyes, Ears, Nose, Throat Exam: normal ENT inspection, moist mucous membranes Neck Exam: normal inspection, non-tender, supple, full range of motion Cardiovascular/Respiratory Exam: chest non-tender, no respiratory distress Gastrointestinal/Abdominal Exam: non-tender Back Exam: normal inspection, normal range of motion, No CVA tenderness, No vertebral tenderness Hips Exam: bilateral: non-tender, normal inspection, normal range of motion, no evidence of injury Legs Exam: bilateral leg: non-tender, normal inspection, normal range of motion, no evidence of injury Knees Exam: bilateral knee: non-tender, normal inspection, normal range of motion, no evidence of injury Ankle Exam: bilateral ankle: non-tender, normal inspection, normal range of mo tion, no evidence of injury Foot Exam: left foot: bone tenderness, soft tissue tenderness, other (Cellulitis has improved.) Mental Status Exam: alert, oriented x 3, cooperative Skin Exam: warm, dry, other (Cellulitis improving left heel) SpO2 Interpretation: normal O2 Delivery: Room Air - Course Nursing assessment & vital signs reviewed: Yes - Progress Progress: improved Counseled pt/family regarding: diagnosis, need for follow-up - Departure Departure Disposition: Home Clinical Impression: Cellulitis, Encounter for medical screening examination Condition: Stable Critical Care Time: No Referrals: [facility] [Primary Care Provider] - Additional Instructions: Keep area clean daily with soap and water. Continue your antibiotics as prescribed. Follow-up with your primary care physician on 04/16/2021. Return to the emergency department if symptoms worsen.
== END 2021-04-14 16:03 | disposition home or self-care (01) ==
LOC: ED 15:16
DX: L03.116 Cellulitis of left lower limb (principal); Z11.8 Encounter for screening for other infectious and parasitic diseases; Z79.899 Other long term (current) drug therapy
CPT/HCPCS: 99283

== ENCOUNTER 2022-01-07 09:13 | Emergency (ER) | payer OTHER ==
--- NOTE | 2022-01-07 09:32 | ERPHSYRPT ---
- History of Present Illness Time Seen by Provider: 01/07/22 09:31 Source: patient, family Exam Limitations: no limitations Patient Subjective Stated Complaint: PT states "We went to [place] yesterday and walked around most of [place] and when I got home, I went to get our of the car and my ankle hurt so bad that I could barely walk on it." Triage Nursing Assessment: Pt presented alert and oriented X 3, skin pwd pt right ankle swollen and red, foot pwd. Pt unable to bear weight on ankle. no other injuries or complaints noted. Physician History: This is a 81-year-old diabetic white male patient with hypertension and elevated cholesterol presents with 1 day history of right ankle pain, swelling and redness. Patient did not suffer any acute fall or trauma. His pain is primarily in the ankle and there is associated warmth. It is a chronic ache and it hurts to bear weight. He has never had anything like this before. The pain was in the right calf but he no longer has the pain in the calf but just at the ankle level. Patient denies shortness of breath. Patient denies chest pain. Occurred: yesterday Quality: constant, aching Severity of Pain-Max: moderate Severity of Pain-Current: moderate Lower Extremities Pain: ankle: right Associated Symptoms: other (Hurts to bear weight) Allergies/Adverse Reactions: influenza virus vaccine tvs [id number](65 years up) [From Fluad (65 yr up)(PF)] Allergy (Verified 04/14/21 15:32) vaccine adjuvant emulsion MF59C.1 [From Fluad (65 yr up)(PF)] Allergy (Verified 04/14/21 15:32) Home Medications: Hydrochlorothiazide 25 mg [hydroDIURIL 25 MG] 25 mg PO DAILY 09/04/12 [History] Metoprolol Tartrate 25 mg [Lopressor 25MG Tab] 25 mg PO DAILY 09/04/12 [History] lisinopriL [Zestril] 5 mg PO DAILY 09/04/12 [History] Metformin HCl 2 tab PO BID 04/13/21 [History] Atorvastatin Calcium 20 mg PO DAILY 01/07/22 [History] Fluticasone Propion/Salmeterol [Wixela 250-50 Inhub] 1 each IH BID 01/07/22 [History] Hx Tetanus, Diphtheria Vaccination/Date Given: No Hx Influenza Vaccination/Date Given: Yes Hx Pneumococcal Vaccination/Date Given: Yes Immunizations Up to Date: Yes Travel Risk - International Travel Have you traveled outside of the country in past 3 weeks: No - Coronavirus Screening Are you exhibiting any of the following symptoms?: No Close contact with a COVID-19 positive Pt in past 14-21 Days: No - Vaccine Status Have you recieved a Covid-19 vaccination: No - Review of Systems Constitutional: No Symptoms Eyes: No Symptoms Ears, Nose, & Throat: No Symptoms Respiratory: No Symptoms Cardiac: No Symptoms Abdominal/Gastrointestinal: No Symptoms Genitourinary Symptoms: No Symptoms Musculoskeletal: Joint Redness (Right ankle), Joint Pain (Right ankle), Joint Swelling (Right ankle) Skin: No Symptoms Neurological: No Symptoms Psychological: No Symptoms Endocrine: No Symptoms Hematologic/Lymphatic: No Symptoms Immunological/Allergic: No Symptoms All Other Systems: Reviewed and Negative - Past Medical History Pertinent Past Medical History: Yes Neurological History: No Pertinent History ENT History: No Pertinent History Cardiac History: Hypertension, Other Respiratory History: No Pertinent History Endocrine Medical History: No Pertinent History Musculoskeletal History: No Pertinent History GI Medical History: No Pertinent History History: No Pertinent History Psycho-Social History: No Pertinent History Male Reproductive Disorders: No Pertinent History Other Medical History: skin cancer - Past Surgical History Past Surgical History: Yes Neuro Surgical History: No Pertinent History Cardiac: Pacemaker Respiratory: No Pertinent History Gastrointestinal: No Pertinent History Genitourinary: No Pertinent History Musculoskeletal: No Pertinent History Male Surgical History: No Pertinent History - Social History Smoking Status: Never smoker Exposure to second hand smoke: No Drug Use: none Patient Lives Alone: No - Nursing Vital Signs Nursing Vital Signs: Initial Vital Signs Temperature 98.1 F 01/07/22 09:16 Pulse Rate 84 01/07/22 09:16 Respiratory Rate 20 01/07/22 09:16 Blood Pressure 156/71 01/07/22 09:16 O2 Sat by Pulse Oximetry 96 01/07/22 09:16 Pain Scale Pain Intensity 5 - Physical Exam General Appearance: no apparent distress, alert, anxiety Eyes, Ears, Nose, Throat Exam: normal ENT inspection, moist mucous membranes Neck Exam: normal inspection, non-tender, supple, full range of motion Cardiovascular/Respiratory Exam: chest non-tender, no respiratory distress Gastrointestinal/Abdominal Exam: non-tender Back Exam: normal inspection, normal range of motion, No CVA tenderness, No vertebral tenderness Hips Exam: bilateral: non-tender, normal inspection, normal range of motion, no evidence of injury Legs Exam: bilateral leg: non-tender, normal inspection, normal range of motion, no evidence of injury Knees Exam: bilateral knee: non-tender, normal inspection, normal range of motion, no evidence of injury Ankle Exam: right ankle: pain, soft tissue tenderness, swelling, left ankle: non-tender, normal inspection, normal range of motion, bilateral ankle: no evidence of injury Foot Exam: bilateral foot: non-tender, normal inspection, normal range of motion, no evidence of injury Neuro/Tendon Exam: normal sensation, normal motor functions, normal tendon functions, responds to pain, no evidence tendon injury Mental Status Exam: alert, oriented x 3, cooperative Skin Exam: normal color, warm, dry SpO2 Interpretation: normal SpO2: 96 O2 Delivery: Room Air - Course Nursing assessment & vital signs reviewed: Yes Ordered Tests: Active Orders 24 hr Category Date Time Status ANKLE (3 VIEWS) Stat Exams 01/07/22 09:33 Completed VENOUS UNILAT/LIMITED EXTREMIT [US] Stat Exams 01/07/22 10:29 Ordered D-DIMER QUANTITATIVE Stat Lab 01/07/22 09:53 Completed Uric Acid Stat Lab 01/07/22 09:53 Completed Lab/Rad Data: Laboratory Results 01/07/22 01/07/22 Range/Units 09:53 09:53 D-Dimer 0.62 H* (0.0-0.50) ng/mL Uric Acid 7.1 (3.5-7.2) mg/dL - Progress Progress: improved, pain not gone completely Progress Note: 01/07/22 10:00 X-ray right ankle shows mild diffuse soft tissue swelling and tiny plantar heel spur. There is no evidence of any acute fracture or dislocation. 01/07/22 10:48 Venous ultrasound right lower extremity is negative for DVT per photo technologist. Counseled pt/family regarding: lab results, diagnosis, need for follow-up, rad results - Departure Departure Disposition: Home Clinical Impression: Right ankle pain, Right ankle swelling Condition: Stable Critical Care Time: No Referrals: [facility] [Primary Care Provider] - Follow up/PCP as directed Additional Instructions: Ice pack/ice bath right foot and ankle 2-3 times a day when not ambulating. In addition, keep the right foot and ankle elevated above level of heart when not ambulating. Take your medication as prescribed. Monitor your blood glucose closely while taking the steroids. Follow-up with your primary care physician for further evaluation and management. Prescriptions: Oxycodone HCl/Acetaminophen [Percocet 5-325 mg Tablet] 1 each PO Q8H PRN PRN #6 tablet MDD 3 PRN Reason: Moderate To Severe Pain Ciprofloxacin [Cipro 500 MG] 500 mg PO BID #14 tablet Naproxen 500 mg [Naprosyn 500 MG] 500 mg PO BID #10 tablet
--- NOTE | 2022-01-07 09:54 | XRAY ---
Indication: Pain and swelling. Comparison: None 3 view right ankle demonstrates mild osteopenia, mild diffuse soft tissue swelling, and tiny plantar heel spur. No other bony, articular, or soft tissue abnormalities.
[2022-01-07] MEDS ORDERED: Naprosyn 500 MG PO ONE (10:57)
[2022-01-07] MEDS ORDERED: PERCOCET TABLET 5/325MG PO STA (10:57)
--- NOTE | 2022-01-07 11:00 | XRAY ---
Indication: Pain and swelling. Two-dimensional sonogram and color Doppler imaging of the major venous vessels of the right leg performed. Comparison: None No thrombus seen in the visualized deep venous vessels of the right leg including greater saphenous vein. Veins demonstrate normal compressibility. Venous waveforms are normal with and without augmentation. Impression: Right leg negative for DVT.
[2022-01-07] MEDS ORDERED: PERCOCET TABLET 5/325MG ONE (11:01)
[2022-01-07 11:07] VITALS: BP 139/82; PULSE 76; O2SAT 98
== END 2022-01-07 11:44 | disposition home or self-care (01) ==
LOC: ED 09:13
DX: M25.571 Pain in right ankle and joints of right foot (principal); R60.0 Localized edema; I10 Essential (primary) hypertension; E78.5 Hyperlipidemia, unspecified; Z79.891 Long term (current) use of opiate analgesic; Z79.899 Other long term (current) drug therapy
CPT/HCPCS: 36415; 73610; 84550; 85379; 93971; 99284; A9270-GY

== ENCOUNTER 2023-09-04 17:44 | Emergency (ER) | payer OTHER ==
[2023-09-04 18:13] VITALS: PULSE 94; TEMP 99.1; O2SAT 96
[2023-09-04 18:14] VITALS: RESP 20
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
[2023-09-04 19:16] VITALS: BP 166/78
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
== END 2023-09-04 19:33 | disposition home or self-care (01) ==
LOC: ED 17:44
DX: S09.90XA Unspecified injury of head, initial encounter (principal); S16.1XXA Strain of muscle, fascia and tendon at neck level, initial encounter; V43.52XA Car driver injured in collision with other type car in traffic accident, initial encounter; M54.6 Pain in thoracic spine; R51.9 Headache, unspecified; I10 Essential (primary) hypertension; E11.9 Type 2 diabetes mellitus without complications; Z79.899 Other long term (current) drug therapy; Z28.310 Unvaccinated for COVID-19
CPT/HCPCS: 70450; 71250; 72125; 99285